=== PATIENT | male | born 1950 | race Caucasian/White ===

== ENCOUNTER 2016-07-20 05:43 | Inpatient (IN) | payer MEDICARE, BC ==
[~2016-07-20] VITALS: Ht 185.4 cm; Wt 79.0 kg
[2016-07-20] MEDS ORDERED: SODIUM CHLORIDE 0.9% 1,000 ML IV SCH (06:14)
[2016-07-20 06:17] VITALS: BP 133/70
[2016-07-20] MEDS ORDERED: CLOP75TA22 PO (06:40)
[2016-07-20] MEDS ORDERED: ATOR20TA PO (06:40)
[2016-07-20] MEDS ORDERED: ASPI-621 PO (06:40)
[2016-07-20] MEDS ORDERED: FENTANYL PF 100 MCG/2ML ONE ×2 (08:05→09:36)
[2016-07-20] MEDS ORDERED: ISOPROTERENOL 0.2MG/ML, 5ML ONE (08:06)
[2016-07-20] MEDS ORDERED: MIDAZOLAM 1 MG/ML, 5ML ONE ×2 (08:06→09:36)
[2016-07-20] MEDS ORDERED: LIDOCAINE 2%, 20ML ONE (08:06)
[2016-07-20] MEDS ORDERED: ADENOSINE 6 MG/2 ML ONE (08:06)
[2016-07-20] MEDS ORDERED: HEPARIN 1,000 UNITS/ML, 10ML ONE (09:16)
[2016-07-20] MEDS ORDERED: DIPHENHYDRAMINE 50 MG/ML, 1ML ONE (09:45)
[2016-07-20] MEDS ORDERED: PROTAMINE SULFATE 10 MG/ML, 5ML ONE (10:27)
[2016-07-20] MEDS ORDERED: ZOLPIDEM 5MG TABLET PO PRN (11:00)
[2016-07-20] MEDS ORDERED: ACETAMINOPHEN 325 MG TABLET PO PRN (11:00)
[2016-07-20] MEDS ORDERED: HYDROcodone/APAP 5/325 TABLET ONE ×2 (12:42→13:14)
[2016-07-20] MEDS: HYDROcodone/APAP 5/325 TABLET PO PRN ×2 (12:43→13:21)
[2016-07-20 13:52] VITALS: BP 99/55
[2016-07-20 13:57] VITALS: BP 99/55
[2016-07-20 16:11] VITALS: BP 103/63
[2016-07-20 18:58] VITALS: BP 104/58
[2016-07-20] MEDS ORDERED: CLOPIDOGREL 75 MG TABLET PO SCH (21:00)
[2016-07-20] MEDS ORDERED: ASPIRIN 81 MG TABLET EC PO SCH (21:00)
[2016-07-20] MEDS ORDERED: ATORVASTATIN 20 MG TABLET PO SCH (21:00)
[2016-07-21 02:05] VITALS: BP 99/58
[2016-07-21 07:19] VITALS: BP 106/64
[2016-07-21] MEDS ORDERED: ASPIRIN 81 MG TABLET EC PO SCH (09:00)
[2016-07-21] MEDS ORDERED: CLOPIDOGREL 75 MG TABLET PO SCH (09:00)
== END 2016-07-21 11:55 | disposition home or self-care (01) | DRG 274 ==
LOC: CACL 05:43 → ORIP 10:36 → 5SO 14:29 → DCLOUNGE 07-21 11:41
PROVIDERS: ADMIT Internal Medicine Cardiovascular Disease; ATTEND Internal Medicine Cardiovascular Disease
PROC: 02583ZZ Destruction of Conduction Mechanism, Percutaneous Approach (ICD-10-PCS; principal; 2016-07-20)
PROC: 02K83ZZ Map Conduction Mechanism, Percutaneous Approach (ICD-10-PCS; 2016-07-20)
PROC: 4A023FZ Measurement of Cardiac Rhythm, Percutaneous Approach (ICD-10-PCS; 2016-07-20)
PROC: 4A0234Z Measurement of Cardiac Electrical Activity, Percutaneous Approach (ICD-10-PCS; 2016-07-20)
PROC: 4A02XM4 Measurement of Cardiac Total Activity, External Approach (ICD-10-PCS; 2016-07-20)
DX: I47.1 Supraventricular tachycardia (principal); I42.9 Cardiomyopathy, unspecified; I45.6 Pre-excitation syndrome; E78.5 Hyperlipidemia, unspecified; F17.210 Nicotine dependence, cigarettes, uncomplicated; I25.10 Atherosclerotic heart disease of native coronary artery without angina pectoris
CPT/HCPCS: 85347; 93005; 93462; 93613; 93621; 93623; 93653; 93662; C1766; C1893; C1894; J0153; J1644; J2250; J2720; J3010; J3490; C1730; C1759; C2630; J1200